=== PATIENT | female | born 1980 | race Caucasian/White ===

== ENCOUNTER → 2024-04-17 | Emergency (ER) | payer MEDICAID, OTHER ==
[~2024-04-17] MED LIST: LEVE-71 PO; TRAM50TA5 PO
== END | disposition still patient (30) ==
LOC: EMS 21:46
DX: Z53.21 Procedure and treatment not carried out due to patient leaving prior to being seen by health care provider (principal)

== ENCOUNTER 2024-09-10 12:48 | Emergency (ER) | payer OTHER ==
[~2024-09-10] VITALS: Ht 160 cm; Wt 81.4 kg
[2024-09-10 12:56] VITALS: TEMP 97.9
[2024-09-10] MEDS: DiphenhydrAMINE HCL 50 MG/ML VIAL IVP ONE (14:34)
[2024-09-10] MEDS: SODIUM CHLORIDE 0.9% 1,000 ML IV ONE (14:34)
[2024-09-10] MEDS: METOCLOPRAMIDE HCL 5 MG/ML 2 ML VIAL IVP ONE (14:34)
[2024-09-10] MEDS ORDERED: MAGNESIUM SULFATE 1 GM in DEXTROSE 5%-WATER 50 ML IV ONE (17:15)
[2024-09-10] MEDS: MAGNESIUM SULFATE 1 GM in DEXTROSE 5%-WATER 50 ML IV ONE (17:21)
[2024-09-10] MEDS: KETOROLAC TROMETHAMINE 30 MG/ML VIAL IVP ONE (17:22)
[2024-09-10] MEDS: DEXAMETHASONE SOD PHOS 4 MG/ML VIAL IVP ONE (17:22)
[2024-09-10 18:07] VITALS: BP 108/57; PULSE 50; RESP 18; O2SAT 97
== END 2024-09-10 18:59 | disposition home or self-care (01) ==
LOC: EMS 13:13
DX: G43.909 Migraine, unspecified, not intractable, without status migrainosus (principal); Z79.899 Other long term (current) drug therapy
CPT/HCPCS: 99285; 96365; 96375; 70450; 96361; 84703; 36415; J1885; J1100; J1200; J2765; J7060; J3475; J7030